=== PATIENT | female | born 1965 | race Caucasian/White ===

== ENCOUNTER 2016-12-06 17:14 | Emergency (ER) | payer OTHER ==
[~2016-12-06 17:14] MED LIST: ALBUTEROL17 GM INH; AMOXICILLIN PO; AUGMENTIN875 MG DOB; DIFLUCAN50 MG PO; ELIMITE60 GM TOP; FLEXERIL10 MG PO; IBUPROFEN PO; LORTAB 5/500 TA1 TA1 PO; NAPROSYN500 MG PO; NO MEDICATIONS; NORCO1 TAB 10/3 PO; NORFLEX100 M1 PO; NORVASC2.5 MG PO; ONDANSETRON ODT4 MG DOB; PROMETHAZINE D118 ML PO; TESSALON PERLE100 M1 PO; TYLENOL #3 PO; ULTRAM PO; VOLTAREN75 MG PO; ZESTRIL10 M1 PO; ZITHROMAX PO; ZOFRAN PO
== END 2016-12-06 17:28 | disposition home or self-care (01) ==
LOC: SED 17:14
DX: J06.9 Acute upper respiratory infection, unspecified (principal); Z90.49 Acquired absence of other specified parts of digestive tract
CPT/HCPCS: 99282